=== PATIENT | female | born 1970 ===

== ENCOUNTER → 2018-03-14 15:26 | Outpatient (CLI) | payer OTHER, SELFPAY ==
[2018-03-14 16:16] LABS: D-Dimer 256 ng/mlFEU (<500)
== END ==
PROVIDERS: PCP Family Medicine; Visit Provider Family Medicine
DX: R05 Cough (principal)
CPT/HCPCS: 36415; 85379

== ENCOUNTER 2018-11-20 18:38 | Outpatient (REF) | payer OTHER, SELFPAY ==
[2018-11-20 22:04] LABS: Abs Immature Grans 0.03 k/cumm (0.0-0.09); Absolute Basophil Count 0.03 k/cumm (0.0-0.2); Absolute Eosinophil Count 0.21 k/cumm (0.0-0.7); Absolute Monocyte Count 0.73 k/cumm (0.11-0.7); Basophils % 0.3; Eosinophils % 1.8; HCT 42.9 % (36.0-46.0); HGB 14.4 g/dL (12.0-15.5); Immature Grans % 0.3; Lymphocytes % 32.2; Mean Corp. HGB Concentration 33.6 g/dL (32.0-36.0); Mean Corpuscular Hemoglobin 30.8 pg (27.0-33.0); Mean Corpuscular Volume 91.7 fL (80-95); Mean Platelet Volume 11.6 fL (8.0-11.0); Monocytes % 6.3; Neutrophils % 59.1; Platelet Count 320 x1000/uL (130-400); RBC 4.68 m/cumm (4.00-5.20); RBC Distribution Width 12.5 % (11.7-14.6); White Blood Cell Count 11.63 k/cumm (4.4-10.8)
[2018-11-20 22:23] LABS: Absolute Lymphocyte Count 3.74 k/cumm (1.2-3.4); Absolute Neutrophil Count 6.87 k/cumm (1.2-6.7)
[2018-11-20 22:45] LABS: ESR 38 MM/HR (0-20)
== END 2018-11-20 18:58 ==
LOC: NCHCN 18:38
PROVIDERS: PCP Family Medicine; Visit Provider Family Medicine
DX: K52.9 Noninfective gastroenteritis and colitis, unspecified (principal)
CPT/HCPCS: 85652; 85025

== ENCOUNTER 2020-12-08 13:03 | Outpatient (CLI) | payer OTHER, SELFPAY ==
--- NOTE | 2020-12-08 10:48 | DI.RAD_ITS ---
Exam(s) XR SHOULDER LT COMPLETE 2+V EXAM: XR SHOULDER LT COMPLETE 2+V CLINICAL HISTORY: PAIN IN LT SHOULDER, M25.512. TECHNIQUE: 2D digital imaging was performed. COMPARISON: No exams were available for comparison FINDINGS: No evidence of fracture or dislocation no abnormal soft tissue calcifications. No osseous lesions. Bone density is normal. No both glenohumeral and AC joints appear unremarkable. IMPRESSION: No significant radiographic findings on these four views of the left shoulder. DATA REPOSITORY: RADIATION DOSE DELIVERED:
== END 2020-12-08 13:23 ==
PROVIDERS: PCP Family Medicine; Visit Provider Physician Assistant Medical
DX: M25.512 Pain in left shoulder (principal)
CPT/HCPCS: 73030

== ENCOUNTER 2020-12-22 10:58 | Emergency (ER) | payer OTHER, SELFPAY ==
--- NOTE | 2020-12-22 11:00 | RT.EKG_ITS ---
APPROVED REPORT Exam: Resting ECG Reason for Exam: sob Patient Location: E HR:90 bpm ECG Measurements Heart Rate 90 AXIS MS 148 P 48 QRSd 87 QRS 4 QT 366 T 42 QTc 449 Conclusion Sinus rhythm...normal P axis, V-rate 60- 99
[2020-12-22 11:08] VITALS: BP 112/70; PULSE 98; RESP 17; TEMP 36.4; O2SAT 98
--- NOTE | 2020-12-22 11:30 | DI.RAD_ITS ---
Exam(s) XR CHEST 2V PA LATERAL EXAM: XR CHEST 2V PA LATERAL CLINICAL HISTORY: 10 d cough TECHNIQUE: 2D digital imaging was performed. COMPARISON: No exams were available for comparison FINDINGS: MEDIASTINUM: Normal. HEART: Normal. PULMONARY VASCULATURE: Normal. LUNGS: Clear. PLEURAL SPACE: No pleural effusion or pneumothorax. BONE:Within normal limits for the patient's age. OTHER FINDINGS:Normal. IMPRESSION: No acute pulmonary findings. DATA REPOSITORY: RADIATION DOSE DELIVERED:
--- NOTE | 2020-12-22 11:32 | ED.GENADUL_ITS ---
Discharge Plan Disposition Patient Disposition: HOME Condition: Improving Discharge Details Clinical Impression: Bronchitis Primary Care Provider: Savannah Ferguson ED Provider: Suhail Martines Home Meds and New Rx's Prescriptions: New doxycycline hyclate 100 mg capsule 100 mg PO BID 10 Days Qty: 20 RF: 0 guaifenesin [Mucinex] 600 mg tablet extended release 12hr 600 mg PO Q12H PRNQty: 10 RF: 0 Continued benzonatate 100 mg Capsule 100 mg PO TID RF: 0 albuterol sulfate 90 mcg/actuation Hfa Aerosol Inhaler 90 mcg INHALATION PRN PRNRF: 0 codeine-guaifenesin Syrup 1 ml PO DAILY RF: 0 bupropion HCl [Wellbutrin XL] 150 mg Tablet Extended Release 24 Hr 150 mg PO DAILY RF: 0 Discharge Instructions Instructions: Acute Bronchitis (ED) Additional Instructions: Return for difficulty breathing that is progressive, development of chest pain, fever, or any other acute concerns. Take antibiotic as prescribed. May continue the use of Tessalon as well as b egin Mucinex as prescribed. Follow-up with regular doctor if not improved in 5 days time. Medical Decision Making 50-year-old female presents with 10 days of cough, congestion, production of sputum. She has been seen at urgent care twice and reports negative Covid test. She was placed on albuterol every 4 hours with minimal improvement. Today with ongoing cough that has been spasmodic and often feels irritated. She has had posttussive emesis but denies abdominal pain, nausea. Patient's vital signs reveal a temp of 36, pulse in the 90s, blood pressure 112/70 she is oxygenating 98% on room air. I do appreciate rhonchi at the right base on my exam. Patient given YgoNeedwin peterson Tessalon, screening EKG obtained, and patient referred for x-ray. X-ray is without acute pulmonary findings. Most consistent with bronchitis. I will treat her for atypical microorganisms with a course of doxycycline, improved antitussives at home. Do not feel steroids are indicated at this time. Note: I was informed approxitwelve 1245 PM that the patient's registration had been performed under the wrong name. This is being remedied by staff. HPI General Mode of arrival: ambulatory . Date/Time Provider Initiated Documentation: 12/22/20 11:01 . Limitations to Documentation: no limitations . Information obtained by: patient . History of Present Illness 50 year old F presents to the emergency department with the chief complaint of 10 days of cough, described as moderate, Quality is described as dull, and is localized to the chest. Patient reports no radiation. Patient started experiencing this day(s) and it has been intermittent. No relieving factors improve symptom(s), No exacerbating factors reported . Patient notes cough; denies fever/chills, headaches and syncope. Patient did receive the following treatments prior to arrival, other (Albuterol) Related Data Home Medications Medication Instructions Recorded Confirmed albuterol sulfate 90 mcg INHALATION PRN PRN 12/22/20 12/22/20 benzonatate 100 mg PO TID 12/22/20 12/22/20 bupropion HCl [Wellbutrin XL] 150 mg PO DAILY 12/22/20 12/22/20 codeine-guaifenesin 1 ml PO DAILY 12/22/20 12/22/20 doxycycline hyclate 100 mg PO BID 10 Days #20 cap 12/22/20 guaifenesin [Mucinex] 600 mg PO Q12H PRN #10 tab 12/22/20 Previous Rx's Medication Instructions Recorded doxycycline hyclate 100 mg PO BID 10 Days #20 cap 12/22/20 guaifenesin [Mucinex] 600 mg PO Q12H PRN #10 tab 12/22/20 Allergies Allergy/AdvReac Type Severity Reaction Status Date / Time morphine Allergy Severe Skin Rash Unverified 12/22/20 11:32 nickel AdvReac Mild Other (See Unverified 12/22/20 11:32 Comment) General Stated Complaint: RespSymp LILA: 4 Review of Systems Narrative: Cough with mild production of sputum. No fever noted. Has had posttussive emesis but no nausea. Using albuterol every 4 hours with minimal improvement. [facility] Social History Smoking/Tobacco Use Status: Never Smoking risk assessment performed?: Yes Alcohol Intake: never Substance use type: does not use Do you feel safe at home: Yes Do you feel safe in your relationship?: Yes Exam Narrative Exam Narrative: GEN: awake, alert, oriented 3. Pleasant, well groomed, interactive. HEAD: Normocephalic, atraumatic ENT: Mucous membranes moist, oropharynx unremarkable, External ear exam unremarkable EYES: PERRL, EOMI NECK: Full ROM, no KIKI, no menigismus CHEST/RESP: Nontender, cough noted, right base rhonchi, few end expiratory wheezes scattered CARDIOVASCULAR: RRR, no murmur, rub ruth. 2+ Rad pulse bilateral EXT: Full ROM, no edema, no rash Neuro: Grossly normal neurologic exam, conversant, interactive. Psych: Speech fluent, thoughts congruent, affect normal Course Vital Signs Vital signs: Vital Signs Temperature 36.4 C L 12/22/20 11:08 Pulse 98 H 12/22/20 11:08 Respiratory Rate 17 12/22/20 11:08 Blood Pressure 112/70 12/22/20 11:08 Pulse Oximetry 98 12/22/20 11:08 Temperature 36.4 C L 12/22/20 11:08 Temperature Source Temporal Artery Scan 12/22/20 11:08 Pulse 98 H 12/22/20 11:08 Respiratory Rate 17 12/22/20 11:08 Respiratory Effort 12/22/20 11:11 Respiratory Depth Normal 12/22/20 11:11 Blood Pressure 112/70 12/22/20 11:08 Blood Pressure Position Sitting 12/22/20 11:08 Pulse Oximetry 98 12/22/20 11:08 Oxygen Delivery Method Room Air 12/22/20 11:08 Oxygen Flow Rate 0 12/22/20 11:08
[2020-12-22] MEDS: Albuterol/Ipratropium 3 ML UPD VIAL UPD (11:52)
[2020-12-22] MEDS: Benzonatate 200 MG CAP PO (12:17)
== END 2020-12-22 12:43 | disposition home or self-care (01) ==
PROVIDERS: Emergency Provider Emergency Medicine; PCP Family Medicine
DX: J20.9 Acute bronchitis, unspecified (principal)
CPT/HCPCS: 93005; 94640; 99283; 71046; 93010; J7620

== ENCOUNTER → 2023-03-05 01:40 | Outpatient (CLI) | payer BC, SELFPAY ==
--- NOTE | 2023-03-05 | DI.MAMMO_ITS ---
Exam(s) MAMMO SCREENING EXAM: MAMMO SCREENING CLINICAL HISTORY: SCREENING, Z12.39 TECHNIQUE: Mammograms were interpreted according to the usual protocol including computer analysis w [employer] CAD system, tomosynthesis and C-view imaging. COMPARISON: 2014 FINDINGS: The breasts are composed of mainly fatty density , Breast Density category A. No suspicious masses or suspicious microcalcifications are seen. No skin thickening or abnormal axillary lymph nodes are seen. There has been no significant change from prior exams. IMPRESSION: BI-RADS Category 1, Negative mammogram Yearly screening mammography is recommended. Breast Density - Category A, fatty density. A negative radiographic report should not delay biopsy if a dominant or clinically suspicious mass is present. Up to ten percent of cancers are not identified on mammography. A negative report may reinforce clinical impression. Adenosis and dense breasts may obscure an underlying neoplasm. False positive reports average 6 to 10%. Patient will receive a letter notifying them of these results.
== END ==
PROVIDERS: PCP Family Medicine; Visit Provider Family Medicine
DX: Z12.31 Encounter for screening mammogram for malignant neoplasm of breast (principal)
CPT/HCPCS: 77063; 77067

== ENCOUNTER 2024-06-11 09:48 | Outpatient (RCR) | payer BC, SELFPAY ==
--- NOTE | 2024-06-04 11:00 | RT.EKG_ITS ---
APPROVED REPORT Exam: Resting ECG Reason for Exam: Baseline Patient Location: O HR:73 bpm ECG Measurements Heart Rate 73 AXIS W[place] 150 P 51 QRSd 87 QRS 14 QT 410 T 40 QTc 452 Conclusion Sinus rhythm...normal P axis, V-rate 50- 99 Normal Electrocardiogram
== END 2024-06-14 23:59 | disposition home or self-care (01) ==
LOC: CR 09:48
PROVIDERS: PCP Family Medicine; Visit Provider Internal Medicine Cardiovascular Disease
DX: I21.4 Non-ST elevation (NSTEMI) myocardial infarction (principal); Z51.89 Encounter for other specified aftercare
CPT/HCPCS: S9472

== ENCOUNTER 2024-07-14 10:00 | Outpatient (RCR) | payer BC, SELFPAY | END 2024-07-15 23:59 | disposition home or self-care (01) | LOC: CR 10:00 | PROVIDERS: PCP Family Medicine; Visit Provider Internal Medicine Cardiovascular Disease | DX: I21.4 Non-ST elevation (NSTEMI) myocardial infarction (principal); Z51.89 Encounter for other specified aftercare | CPT/HCPCS: S9472 ==

== ENCOUNTER 2024-08-15 08:24 | Outpatient (RCR) | payer OTHER, SELFPAY | END 2024-08-15 23:59 | disposition home or self-care (01) | LOC: CR 08:24 | PROVIDERS: PCP Family Medicine; Visit Provider Internal Medicine Cardiovascular Disease | DX: I21.4 Non-ST elevation (NSTEMI) myocardial infarction (principal); Z51.89 Encounter for other specified aftercare | CPT/HCPCS: S9472 ==

== ENCOUNTER 2024-09-12 08:00 | Outpatient (RCR) | payer OTHER, SELFPAY | END 2024-09-12 23:59 | disposition home or self-care (01) | LOC: CR 08:00 | PROVIDERS: PCP Family Medicine; Visit Provider Internal Medicine Cardiovascular Disease | DX: I21.4 Non-ST elevation (NSTEMI) myocardial infarction (principal); Z51.89 Encounter for other specified aftercare | CPT/HCPCS: S9472 ==

== ENCOUNTER 2024-09-15 08:16 | Outpatient (RCR) | payer OTHER, SELFPAY | END 2024-10-13 23:59 | disposition home or self-care (01) | LOC: CR 08:16 | PROVIDERS: PCP Family Medicine; Visit Provider Internal Medicine Cardiovascular Disease | DX: I21.4 Non-ST elevation (NSTEMI) myocardial infarction (principal); I25.42 Coronary artery dissection; Z51.89 Encounter for other specified aftercare | CPT/HCPCS: S9472 ==

== ENCOUNTER 2024-10-17 00:26 | Outpatient (CLI) | payer OTHER, SELFPAY ==
--- NOTE | 2024-10-17 | DI.DEXA_ITS ---
Exam(s) XR DEXA BONE DENSITY W/WO MARIA L EXAM: XR DEXA BONE DENSITY W/WO MARIA L CLINICAL HISTORY: Postmenopausal, Z78.0-asymptomatic menopausal state, premature at age 42 TECHNIQUE: COMPARISON: No exams were available for comparison FINDINGS: Lateral Spine Image: Unremarkable. No compression deformities identified. Left hip: Total T-Score: -0.1 Total Z-Score: 0.5 T- and Z-scores: No evidence of osteoporosis. Lumbar Spine: Total T-Score: -0.9 Total Z-Score: 0.0 T- and Z-scores: Within normal limits. IMPRESSION: No evidence of osteoporosis.
--- NOTE | 2024-10-17 | DI.MAMMO_ITS ---
Exam(s) MAMMO SCREENING EXAM: MAMMO SCREENING CLINICAL HISTORY: Screening, Z12.31; postmenopausal, Z78.0, premature at age 42. TECHNIQUE: Bilateral full field digital CC and MLO mammographic images were obtained with 3D tomosyn thesis and utilizing computer aided detection (CAD). COMPARISON: Prior mammograms were reviewed. FINDINGS: There has been no significant change in the appearance and distribution of the fibroglandular tissue. No CAD designations. Asymmetric density in the left breast is unchanged from 2022. There are no new spiculated masses nor malignant appearing microcalcification groups. There is no significant architectural distortion nor skin thickening-retraction. IMPRESSION: No radiographic evidence of malignancy. BI-RADS Category 1 - Negative Breast Density - Category A - Almost entirely fatty Breast density Category C or D implies that the patient has dense breast tissue. Dense breast tissue can make it harder to find cancer on a mammogram. Dense breast tissue is also associated with an incr eased risk of breast cancer. This information about the result of the mammogram report was provided to the patient to raise their awareness. Use this report when you speak with the patient about their risks for breast cancer, which includes their family history. At that time, you may recommend additional screening tests (Ultrasoun d or MRI) as these tests may add significant information. A negative radiographic report should not delay biopsy if a dominant or clinically suspicious mass is present. Up to ten percent of cancers are not identified on mammography. A negative report may reinforce clinical impression. Adenosis and dense breasts may obscure an underlying neoplasm. False positive reports average 6 to 10%. Patient will receive a letter notifying them of these results.
== END 2024-10-17 00:46 ==
LOC: DI 00:27
PROVIDERS: PCP Family Medicine; Visit Provider Family Medicine
DX: Z12.31 Encounter for screening mammogram for malignant neoplasm of breast (principal); Z78.0 Asymptomatic menopausal state; Z13.820 Encounter for screening for osteoporosis
CPT/HCPCS: 77063; 77067; 77080

== ENCOUNTER 2025-01-02 01:08 | Outpatient (CLI) | payer OTHER, SELFPAY ==
[2025-01-02 16:33] LABS: HCT 41.4 % (36.0-46.0); HGB 13.7 g/dL (11.2-15.7); MCH 30.2 pg (27.0-33.0); MCHC 33.1 % (32.0-36.0); MCV 91 fL (80-95); MPV 11.7 fL (8.0-11.0); Platelet Count 291 10^3/uL (130-400); RBC 4.54 10^6/uL (3.93-5.22); RDW 12.4 % (11.7-14.6); RDW-SD 41.1 fL; WBC 12.12 10^3/uL (4.4-10.8)
[2025-01-02 16:40] LABS: ESR 17 mm/hr (0-30)
[2025-01-02 16:59] LABS: Anion Gap 8.4 mmol/L (3-11); BUN 18 mg/dL (7-18); CO2 27.6 mmol/L (21.0-32.0); CREATININE 1.2 mg/dL (0.55-1.02); Calcium 8.8 mg/dL (8.5-10.1); Calculated LDL 58 mg/dL (<100); Chloride 103 mmol/L (98-107); Cholesterol 136 mg/dL (<200); Estimated GFR 54.46 (mL/min/1.73m2); Glucose 97 mg/dL (74-106); HDL Cholesterol 51 mg/dL (>or=50); Potassium 3.8 mmol/L (3.5-5.1); Sodium 139 mmol/L (136-145); Triglyceride 138 mg/dL (<150)
== END 2025-01-02 01:09 | disposition home or self-care (01) ==
LOC: LBO 01:08
PROVIDERS: PCP Family Medicine; Visit Provider Internal Medicine
DX: E78.5 Hyperlipidemia, unspecified (principal); K92.1 Melena
CPT/HCPCS: 36415; 80048; 80061; 85027; 85652; 86140